=== PATIENT | female | born 1955 | race Caucasian/White ===

== ENCOUNTER → 2019-01-19 | Day surgery (SDC) | payer OTHER ==
[~2019-01-19] MED LIST: ATOR40TA PO; CHOL200059 PO; CO Q 10; EZET10TA18 PO; GARL10002 PO; IV RINGERS,LACTATED 1000ML 1,000 ML IV SCH; LACT1CAP8 PO; LEVO88TA2 PO; LEVO88TA4 PO; LIDOCAINE 2% PF 5 ML VIAL. ONE; OMEG1CAP6 PO; PROPOFOL 40 ML IV ONE; SERT100T PO
[2019-01-19 09:53] VITALS: BP 122/74
== END ==
LOC: ENDOS 08:07
PROVIDERS: ATTEND Internal Medicine Gastroenterology
DX: Z12.11 Encounter for screening for malignant neoplasm of colon (principal); K64.0 First degree hemorrhoids; K63.89 Other specified diseases of intestine; F41.9 Anxiety disorder, unspecified; E78.00 Pure hypercholesterolemia, unspecified; F15.90 Other stimulant use, unspecified, uncomplicated; Z72.89 Other problems related to lifestyle; Z87.891 Personal history of nicotine dependence
CPT/HCPCS: 45378; J2001; J2704